=== PATIENT | female | born 1960 | race Caucasian/White ===

== ENCOUNTER 2017-05-21 05:59 | Day surgery (SDC) | payer OTHER ==
[~2017-05-21] VITALS: Ht 170.2 cm; Wt 165.6 kg
[~2017-05-21 05:59] MED LIST: ALBU18HF INH; CHOL400C PO; FURO20TA3 PO; GLUC1CAP48 PO; LOSA1TAB22 PO; METH500T7 PO; MULT-658 PO; POLY17PO5 PO; SIMV20TA3 PO; [UNRECOGNIZED DRUG - OTHER] TP
[2017-05-21] MEDS ORDERED: LACTATED RINGERS 1,000 ML IV SCH (07:03)
[2017-05-21] MEDS ORDERED: LIDOCAINE 1%, 2ML ONE (07:05)
[2017-05-21 07:17] VITALS: BP 128/74
[2017-05-21] MEDS ORDERED: LIDOCAINE 1%, 2ML SQ PRN (07:30)
[2017-05-21 07:56] LABS: ALANINE AMINOTRANSFERASE 30 U/L (12-78); ALBUMIN 3.6 g/dL (3.4-5.0); ANION GAP 6 mmol/L (5-15); CALCIUM 9.1 mg/dL (8.5-10.1); CHLORIDE 103 mmol/L (98-107); CREATININE 0.59 mg/dL (0.55-1.02)
[2017-05-21 07:58] LABS: ALKALINE PHOSPHATASE 113 U/L (45-117); BILIRUBIN,TOTAL 0.7 mg/dL (0.2-1.0); TOTAL PROTEIN 7.5 g/dL (6.4-8.2)
[2017-05-21] MEDS ORDERED: MIDAZOLAM 1 MG/ML, 2ML ONE (08:38)
[2017-05-21] MEDS ORDERED: FENTANYL PF 100 MCG/2ML IV PRN (09:30)
[2017-05-21] MEDS ORDERED: HYDROcodone/APAP 7.5-325MG/15ML UDC PO PRN (09:30)
[2017-05-21] MEDS ORDERED: ACETAMINOPHEN 325 MG TABLET PO PRN (09:30)
[2017-05-21] MEDS ORDERED: ONDANSETRON 2MG/ML, 2ML IVPush PRN (09:30)
[2017-05-21] MEDS ORDERED: PROPOFOL 10 MG/ML, 20ML ONE (15:26)
== END 2017-05-21 10:40 ==
LOC: OUT 05:59
PROVIDERS: ATTEND Internal Medicine Gastroenterology
DX: K63.5 Polyp of colon (principal); K62.1 Rectal polyp; E66.01 Morbid (severe) obesity due to excess calories; Z68.41 Body mass index [BMI] 40.0-44.9, adult; I10 Essential (primary) hypertension; J45.909 Unspecified asthma, uncomplicated; Z91.012 Allergy to eggs
CPT/HCPCS: 36415; 45385; 80053; 88305; J2250; J2704; J3490; J7120

== ENCOUNTER → 2018-01-01 | Outpatient (CLI) | payer OTHER | END | disposition home or self-care (01) | LOC: CFH 10:27 | PROVIDERS: ATTEND Registered Nurse | DX: Z12.31 Encounter for screening mammogram for malignant neoplasm of breast (principal) | CPT/HCPCS: 77067 ==